=== PATIENT | male | born 1975 | race Caucasian/White ===

== ENCOUNTER 2017-05-15 13:04 | Inpatient (IN) | payer MEDICAID ==
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
[2017-05-15] MEDS ORDERED: TDAP ADULT 0.5 ML INJ (BOOSTRIX) IM ONE (14:40)
[2017-05-15] MEDS ORDERED: ONDANSETRON 4 MG/2 ML VIAL IVP PRN (15:42)
[2017-05-15] MEDS ORDERED: NS 1,000 ML IV SCH (17:30)
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
[2017-05-15] MEDS: ACETAMINOPHEN 500 MG TAB PO SCH (17:42)
[2017-05-15 17:47] LABS: % IMMATURE GRANULYOCYTES 0.4 % (0.0-1.1); ABSOLUTE IMMATURE GRANULOCYTES 0.06 10^3/uL (0.00-0.10); ADD DIFF? NO; ADD MORPH? NO; ADD SCAN? NO; ATYPICAL LYMPHOCYTE FLAG 0 (0-99); FRAGMENT RBC FLAG 0 (0-99); HEMATOCRIT 39.1 % (40.0-51.0); HEMOGLOBIN 13.7 g/dL (13.7-17.5); LEFT SHIFT FLG 0 (0-99); LIPEMIA HEMOLYSIS FLAG 90 (0-99); MEAN CELL HEMOGLOBIN 32.5 pg (27.9-34.1); MEAN CELL VOLUME 92.7 fL (81.5-99.8); MEAN PLATELET VOLUME 8.4 fL (8.7-11.7); PLATELET CLUMPS FLAG 0 (0-99); PLATELET COUNT 260 10^3/uL (150-400); RED BLOOD CELL COUNT 4.22 10^6/uL (4.40-6.38); RED CELL DISTRIBUTION WIDTH 13.2 % (11.5-15.2)
[2017-05-15 18:03] LABS: ALANINE AMINOTRANSFERASE 33 IU/L (21-72); ALKALINE PHOSPHATASE 79 IU/L (38-126); ANION GAP 10 mEq/L (8-16); ASPARTATE AMINOTRANSFERASE 28 IU/L (17-59); BILIRUBIN,TOTAL 0.5 mg/dL (0.1-1.4); CALCIUM 8.9 mg/dL (8.5-10.4); CARBON DIOXIDE 22 mEq/l (22-31); CHLORIDE 106 mEq/L (97-110); CREATININE 0.7 mg/dL (0.7-1.3); GLOMERULAR FILTRATION RATE > 60; GLUCOSE 95 mg/dL (70-100); POTASSIUM 4.2 mEq/L (3.5-5.2); SODIUM 138 mEq/L (134-144); TOTAL PROTEIN 6.3 g/dL (6.3-8.2)
[2017-05-15 18:14] LABS: INR 1.08 (0.83-1.16); PROTIME(PATIENT) 13.9 SEC (12.0-15.0)
[2017-05-15 18:47] LABS: PHENCYCLIDINE URINE BCH < 6 ng/ml (NEGATIVE); PHENCYCLIDINE URINE BCH NEGATIVE (NEGATIVE)
[2017-05-15 19:12] LABS: TETRAHYDROCANNABINOL URINE 320 ng/mL (NEGATIVE)
[2017-05-15] MEDS: DIVALPROEX ER 250 MG TAB PO SCH (21:10)
[2017-05-16] MEDS: ACETAMINOPHEN 500 MG TAB PO SCH ×3 (01:18→15:32)
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
[2017-05-16 04:29] LABS: % IMMATURE GRANULYOCYTES 0.3 % (0.0-1.1); ABSOLUTE IMMATURE GRANULOCYTES 0.04 10^3/uL (0.00-0.10); ADD DIFF? NO; ADD MORPH? NO; ADD SCAN? NO; ATYPICAL LYMPHOCYTE FLAG 0 (0-99); FRAGMENT RBC FLAG 0 (0-99); HEMATOCRIT 38.7 % (40.0-51.0); LEFT SHIFT FLG 0 (0-99); LIPEMIA HEMOLYSIS FLAG 80 (0-99); MEAN CELL HEMOGLOBIN 31.7 pg (27.9-34.1); MEAN CELL HEMOGLOBIN CONCENTR. 33.6 g/dL (32.4-36.7); MEAN CELL VOLUME 94.4 fL (81.5-99.8); MEAN PLATELET VOLUME 8.7 fL (8.7-11.7); PLATELET CLUMPS FLAG 0 (0-99); PLATELET COUNT 260 10^3/uL (150-400); RED CELL DISTRIBUTION WIDTH 13.2 % (11.5-15.2)
[2017-05-16 04:52] LABS: ANION GAP 12 mEq/L (8-16); CALCIUM 8.7 mg/dL (8.5-10.4); CARBON DIOXIDE 19 mEq/l (22-31); CHLORIDE 107 mEq/L (97-110); CREATININE 0.7 mg/dL (0.7-1.3); GLOMERULAR FILTRATION RATE > 60; GLUCOSE 98 mg/dL (70-100); POTASSIUM 4.2 mEq/L (3.5-5.2); SODIUM 138 mEq/L (134-144)
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
--- NOTE | 2017-05-16 08:42 | NEUSURGPN ---
Assessment/Plan: 41 y/o male with with small tSAH and occiptal skull fracture. -Repeat HCT stable. -Neuro stable. Has a mild headache and some mild nausea -Discussed brain healing, and typical post concussive course -Continue Q4 hour neuro checks -No acute neurosurgical indication, will s/o off at this time -Discussed with Dr. Greer. Patient can follow up with our office in 4weeks -Please notify NS with any change in neuro/motor exam Subjective: Mild headache and nausea Objective: NAD A&Ox3 EOMI, CN II-XII grossly intact. MAEx4 5/5 and equal in BUE and BLE. - Physician Discussed Patient with : [facility] Physical Exam - Vitals, I&O, Labs I and O 05/15/17 05/16/17 05/17/17 05:59 05:59 05:59 Intake Total 1100 Output Total 450 Balance 650 Intake: IV Infused (ml) 1100 Ns 1,000 ml @ 100 mls/hr 100 IV CONT ALAYNA Rx#: [id number] Output: Urine (ml) 450 Urinal 450 Other: Number of Voids Urinal 1 Vital Signs Temp Pulse Resp BP Pulse Ox 36.6 C 57 L 12 114/66 99 05/16/17 07:37 05/16/17 07:37 05/16/17 07:37 05/16/17 07:37 05/16/17 07:37 Laboratory Results 05/16/17 04:16 05/16/17 04:16 ICD10 Worksheet Patient Problems: Problems Problem Status Onset Seizure disorder Acute Skull fracture Acute Traumatic subarachnoid hemorrhage Acute Generalized seizures Acute Seizure Acute Complex partial seizure disorder Chronic Head injury Chronic
[2017-05-16] MEDS: DIVALPROEX ER 250 MG TAB PO SCH ×2 (09:00→20:24)
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
[2017-05-17] MEDS: ACETAMINOPHEN 500 MG TAB PO SCH ×4 (00:07→17:14)
[2017-05-17] MEDS: DIVALPROEX ER 250 MG TAB PO SCH ×2 (10:07→21:51)
--- NOTE | 2017-05-17 16:47 | ASMTCMCOM ---
CM Note CM Note Notes: PT recommending Inpt. Rehab. OT recommending SNF. Today Inpt. Rehab denied Pt. Plan to discuss Pt's options w/ Pt. tomorrow - Medicaid skilled nursing vs. Medical respite at [facility] in [place] w/ outpatient rehab at [facility]. If Pt. would like skilled nursing, will complete ULTC 100. SW to follow for d/c POC. Date Signed: 05/17/2017 04:46 PM Electronically Signed By:Sendy Fernandez LCSW
[2017-05-18] MEDS: ACETAMINOPHEN 500 MG TAB PO SCH ×3 (06:38→15:14)
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
[2017-05-18] MEDS: DIVALPROEX ER 250 MG TAB PO SCH ×2 (09:24→21:05)
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
--- NOTE | 2017-05-18 15:23 | ASMTCMCOM ---
CM Note CM Note Notes: Today SWer met w/ Pt. to see if would stay 30-days in a detention w/ his Medicaid benefit. Pt. said he would. Told colleague he was open to various facilities and did not have to stay in [place]. Completed ULTC 100, Pt. signed, SWer faxed to [facility] today. Faxed-attached to [employer] in case LTC facilities want a copy of ULTC. Called [employer] who will complete [facility] Medicaid application for Pt. Made [employer] referrals to the following [facility] facilities: 1) [facility], 2) [place], 3) [place], 4) [facility], 5) [place], and 6) [facility]. Please see [employer] for status of referrals. PT and OT still recommending SNF as of today. Current plan: [facility] Medicaid 30-day stay. Date Signed: 05/18/2017 03:23 PM Electronically Signed By:Sendy Fernandez LCSW
[2017-05-19] MEDS: ACETAMINOPHEN 500 MG TAB PO SCH ×3 (00:44→17:14)
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
[2017-05-19] MEDS: DIVALPROEX ER 250 MG TAB PO SCH ×2 (09:45→20:31)
[2017-05-20] MEDS: ACETAMINOPHEN 500 MG TAB PO SCH ×3 (00:48→16:06)
[2017-05-20] MEDS: DIVALPROEX ER 250 MG TAB PO SCH ×2 (08:25→21:19)
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
[2017-05-21] MEDS: ACETAMINOPHEN 500 MG TAB PO SCH ×2 (08:38→16:14)
[2017-05-21] MEDS: DIVALPROEX ER 250 MG TAB PO SCH ×2 (08:38→21:25)
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
[2017-05-22] MEDS: ACETAMINOPHEN 500 MG TAB PO SCH ×4 (00:31→23:20)
[2017-05-22] MEDS: DIVALPROEX ER 250 MG TAB PO SCH ×2 (08:15→19:44)
--- NOTE | 2017-05-22 16:29 | ASMTCMCOM ---
CM Note CM Note Notes: Spoke with patient who is still interested in 30 day respite in SNF. [facility] came today to do their assessment per Helder. Awaiting written assessment from [facility]. Spoke with patient about returning to [facility] to get his dental issues addressed. He used to be a client but most likely case was closed when he moved out of [place]. Contacted [facility] twice today and they stated they can send a CM out to get him opened again and to manage his outpatient care. However, I am currently awaiting the CM department to call me back. [facility] and [facility] have denied patient due to patient's age and his payer source. Spoke with Malinda from [place] and she is willing to come out tomorrow to meet with the patient. CM will follow. Date Signed: 05/22/2017 04:29 PM Electronically Signed By:Ifrah Marcos LCSW
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
[2017-05-23] MEDS: ACETAMINOPHEN 500 MG TAB PO SCH ×3 (08:19→23:11)
[2017-05-23] MEDS: DIVALPROEX ER 250 MG TAB PO SCH ×2 (08:19→20:23)
--- NOTE | 2017-05-23 15:21 | TRAUMAPN ---
Assessment/Plan: 05/23/2017 Assessment: Doing well. awaiting discharge disposition. Sandy out Subjective: no complaints - eating and moving bowels Objective: Vital Signs Temp Pulse Resp BP Pulse Ox 36.8 C 54 L 16 123/61 H 98 05/23/17 07:30 05/23/17 07:30 05/23/17 07:30 05/23/17 07:30 05/23/17 07:30 05/22/17 05/23/17 05/24/17 05:59 05:59 05:59 Intake Total 500 1300 Balance 500 1300 PT REJ 05/15/17 17:40 INR REJ 05/15/17 17:40 Physical Exam - Physical Exam General Appearance: WD/WN, alert, no apparent distress Neuro/Psych: alert, normal mood/affect, oriented x 3 Time Spent w/Patient (minutes): 15
--- NOTE | 2017-05-23 15:52 | ASMTCMCOM ---
CM Note CM Note Notes: Claudia from [facility] called to say they cannot assign a caseworker intake but if patient will come to the clinic they will help make appointments for him and arrange transportation. Patient has been given hand-out information on dental clinics and address, phone number, etc. of [facility]. Left another message for Ju Arzola CM with [facility] who did patient's assessment. Still awaiting her return call. (Ju's number [phone]). Neena wants to wait to visit patient until they have [facility]'S report. CM will follow. Date Signed: 05/23/2017 03:51 PM Electronically Signed By:Ifrah Marcos LCSW
[2017-05-24] MEDS: ACETAMINOPHEN 500 MG TAB PO SCH ×3 (08:25→21:09)
[2017-05-24] MEDS: DIVALPROEX ER 250 MG TAB PO SCH ×2 (08:25→21:09)
--- NOTE | 2017-05-24 09:50 | TRAUMAPN ---
Assessment/Plan: 05/23/2017 Assessment: Doing well. awaiting discharge disposition. Sandy sanchez 05/24/2018 Assessment: Doing well Plan: Discharge based on facility availability Subjective: pain 2/10 eating and moving bowels Objective: Vital Signs Temp Pulse Resp BP Pulse Ox 36.6 C 58 L 16 90/56 L 99 05/24/17 07:32 05/24/17 07:32 05/24/17 07:32 05/24/17 07:32 05/24/17 07:32 05/23/17 05/24/17 05/25/17 05:59 05:59 05:59 Intake Total 1300 1000 Balance 1300 1000 PT REJ 05/15/17 17:40 INR REJ 05/15/17 17:40 Physical Exam - Physical Exam General Appearance: WD/WN, alert, no apparent distress Respiratory: chest non-tender, lungs clear, normal breath sounds Cardiac/Chest: regular rate, rhythm Male Genitalia: deferred Rectal: deferred Back: Normal inspection Neuro/Psych: no motor/sensory deficits, alert, normal mood/affect, oriented x 3 Time Spent w/Patient (minutes): 15
--- NOTE | 2017-05-24 16:15 | ASMTCMCOM ---
CM Note CM Note Notes: Today Pt. approved for [facility] LTC Medicaid stay at facility - approved by Ju . [facility] came to see Pt. today. Pt. approved, but #5 on waitlist for a male bed. Rafir called Anabel from [facility] and Mt from [place]. Asking Anabel to reconsider denial and Mt to review case. Resent All[employer] referrals to Anabel at and Mt at . Met w/ Pt. in room today. His close friend was visiting and is supportive. SWer provided number for medical records. Pt. trying to gather information to apply for federal disability beneits. Pt. is getting kevin about placement because he wants to smoke. States patch and gum have historically given him headaches. Told Pt. SWer would follow up with him tomorrow to update him on status of referrals to nursing homes. SW/LIZ to follow. Date Signed: 05/24/2017 04:14 PM Electronically Signed By:Sendy Fernandez LCSW
--- NOTE | 2017-05-24 18:52 | PDIAF ---
- Diagnosis Diagnosis: Concussion, occipital skull Fx, SAH, possible tiny intraparenchymal bleed, Code Status: Full Code - Medication Management Discharge Medications: Medications to Continue on Transfer Acetaminophen [Tylenol ES 500 mg (*)] 1,000 mg PO Q8H tab 05/18/17 [Last Taken Unknown] Divalproex ER [Depakote ER 250 MG (*)] 250 mg PO BID #60 tab 05/24/17 [Last Taken Unknown] Discharge Medications: Refer to the Discharge Home Medication list for PRN reason. - Orders Services needed: Registered Nurse, Physical Therapy, Occupational Therapy Diet Recommendation: no restrictions on diet Diet Texture: Regular Texture Diet - Follow Up Care Current Providers and Referrals: Patient,NotPresent [Unknown] - As per Instructions Minh Greer MD [Medical Doctor] - (call office to schedule a f/u evaluation for 4 weeks. follow post concussive recomendations as directed. call office for neurologic concerns)
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
[2017-05-25 07:58] VITALS: RESP 16
[2017-05-25] MEDS: ACETAMINOPHEN 500 MG TAB PO SCH ×3 (08:40→21:41)
[2017-05-25] MEDS: DIVALPROEX ER 250 MG TAB PO SCH ×2 (08:40→21:41)
[2017-05-25 15:41] VITALS: TEMP 98; O2SAT 95
--- NOTE | 2017-05-25 16:43 | TRAUMAPN ---
Assessment/Plan: 05/23/2017 Assessment: Doing well. awaiting discharge disposition. Sandy out 05/24/2017 Assessment: Doing well Plan: Discharge based on facility availability 05/25/2017 Doing well: unable to discharge today. Plan: discharge in AM Subjective: Patient frustrated. Threatening to leave AMA Objective: Vital Signs Temp Pulse Resp BP Pulse Ox 36.7 C 78 16 116/66 95 05/25/17 15:40 05/25/17 15:40 05/25/17 15:40 05/25/17 15:40 05/25/17 15:40 05/24/17 05/25/17 05/26/17 05:59 05:59 05:59 Intake Total 1000 Balance 1000 PT REJ 05/15/17 17:40 INR REJ 05/15/17 17:40
--- NOTE | 2017-05-25 19:07 | ASMTCMCOM ---
CM Note CM Note Notes: Today Monse worked to place Pt. with his [facility] approval for LTC Medicaid stay. Neena still has waitlist for male beds. Monse re-contacted Anabel at [facility] even though her colleague Toni denied Pt. Anabel states she thinks Toni thinks Pt. was someone else. Anabel willing to come meet Pt. at [facility] to reassess. After meeting Pt, Anabel states she will ask [facility] if they will take him due to his relatively young age. Anabel plans to have answer tomorrow, 05/26/17. Monse contacted Mt at [facility]. Mt checked with staff, and cannot admit Pt. due to not having a proper male bed for him. Current plan: Monse met w/ Pt. in room. Pt. agrees that tomorrow he will either get into LTC senior living and go there or if he does not have a senior living placement to go to he will go stay with his best friend, Jeffery's brother to have a roof over his head. Monse to follow for d/c POC. Date Signed: 05/25/2017 06:16 PM Electronically Signed By:Sendy Fernandez LCSW
[2017-05-26 00:33] VITALS: BP 127/85; PULSE 77
[2017-05-26] MEDS: ACETAMINOPHEN 500 MG TAB PO SCH (08:24)
[2017-05-26] MEDS: DIVALPROEX ER 250 MG TAB PO SCH (08:25)
--- NOTE | 2017-05-26 14:54 | ASMTCMCOM ---
CM Note CM Note Notes: Today Rafir worked to get answer for Pt. on whether he would get into a LTC nursing facility today. Neena still with male waitlist for a bed. [facility] would take Pt., but no beds available today per Anabel. SWer let Pt. know. Pt. stated he would stay with his friend, Jeffery's brother. Stated will have a roof over his head. Pt. has plans to work on numerous issues to benefit his health including working on his disability application. Later, bedside RN told SWer that Pt. was upset. Mostly upset that he had waited and gotten his hopes up about a placement. Pt. did not express those feelings at the time SWer met w/ him. RN to give Pt. follow-up appt. information for seeing Dr. Greer in neurosurg. Pt d/c'ed independently. Date Signed: 05/26/2017 02:53 PM Electronically Signed By:Sendy Fernandez LCSW
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
== END 2017-05-26 13:46 | disposition home or self-care (01) | DRG 87 ==
LOC: EDUNIT# → F3N 16:50 → OBSVTOIN 05-16 15:44
PROVIDERS: ADMIT Surgery; ATTEND Surgery
PROC: 0HQ0XZZ Repair Scalp Skin, External Approach (ICD-10-PCS; principal; 2017-05-16)
DX: S06.6X1A Traumatic subarachnoid hemorrhage with loss of consciousness of 30 minutes or less, initial encounter (principal); S02.119A Unspecified fracture of occiput, initial encounter for closed fracture; S01.01XA Laceration without foreign body of scalp, initial encounter; R40.2411 Glasgow coma scale score 13-15, in the field [EMT or ambulance]; Y00.XXXA Assault by blunt object, initial encounter; Y92.830 Public park as the place of occurrence of the external cause; Z59.0 Homelessness; Z72.0 Tobacco use; G40.909 Epilepsy, unspecified, not intractable, without status epilepticus
CPT/HCPCS: 80307; 92507-GN; 92523-GN; 92610-GN; 97112-GP; 97116-GP; 97162-GP; 97166-GO; 97530-GO; 97532-GO; 97535-GO; G0378; G0480; J2405

== ENCOUNTER 2018-01-01 17:20 | Emergency (ER) | payer MEDICAID ==
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
[2018-01-01 17:55] LABS: PLATELET COUNT 318 10^3/uL (150-400)
[2018-01-02 07:50] VITALS: BP 101/67
== END 2018-01-02 12:45 | disposition home or self-care (01) ==
DX: R45.851 Suicidal ideations (principal); F17.200 Nicotine dependence, unspecified, uncomplicated; Z59.0 Homelessness
CPT/HCPCS: 80305; G0480